=== PATIENT | female | born 2000 | race African-American/Black ===

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

== ENCOUNTER 2022-01-17 15:49 | Emergency (ER) | payer OTHER ==
[2022-01-17] MEDS ORDERED: Lidocaine 1% PF 5 ML VIAL ONE (17:45)
== END 2022-01-17 18:24 | disposition home or self-care (01) ==
LOC: ERS 15:49
DX: L02.412 Cutaneous abscess of left axilla (principal); L03.112 Cellulitis of left axilla; I10 Essential (primary) hypertension
CPT/HCPCS: 10061

== ENCOUNTER 2022-01-19 07:11 | Emergency (ER) | payer OTHER ==
[2022-01-19] MEDS ORDERED: Bacitracin 1 PK ONE (07:43)
== END 2022-01-19 08:20 | disposition home or self-care (01) ==
LOC: ERS 07:11
DX: L02.412 Cutaneous abscess of left axilla (principal); I10 Essential (primary) hypertension; Z79.899 Other long term (current) drug therapy
CPT/HCPCS: 99282

== ENCOUNTER 2022-11-12 22:06 | Emergency (ER) | payer OTHER ==
[2022-11-12] MEDS ORDERED: Proparacaine 0.5% Opth 15 ML BOT ONE (23:21)
[2022-11-12] MEDS ORDERED: Fluorescein Opthalmic Strip ONE (23:21)
== END 2022-11-13 00:42 | disposition home or self-care (01) ==
LOC: ERS 22:06
DX: S05.02XA Injury of conjunctiva and corneal abrasion without foreign body, left eye, initial encounter (principal)
CPT/HCPCS: 99283

== ENCOUNTER 2023-06-28 13:09 | Emergency (ER) | payer OTHER, SELFPAY | END 2023-06-28 13:36 | disposition left against medical advice (07) | LOC: ERS 13:09 | DX: Z53.21 Procedure and treatment not carried out due to patient leaving prior to being seen by health care provider (principal) ==

== ENCOUNTER 2023-10-17 04:10 | Emergency (ER) | payer BC, SELFPAY ==
[2023-10-17 04:47] LABS: #Monocytes 1.1 thou/uL (0.11-0.59); #Neutrophils 6.1 thou/uL (1.40-6.50); %Basophils 0.1 % (0.0-1.0); %Lymphocytes 7.9 % (21.0-51.0); %Neutrophils 77.9 % (42.0-75.0); Hematocrit 40.3 % (36.0-47.0); Hemoglobin 13.7 g/dL (12.0-16.0); Mean Corpuscular Volume 88.4 fl (78.0-98.0); Mean Platelet Volume 10.6 fL (7.4-10.4); Platelet Count 262 10x3/uL (130-400); RBC Distribution Width 12.8 % (11.5-14.5); Red Blood Cell (RBC) Count 4.56 mill/uL (4.20-5.40); White Blood Cell (WBC) Count 7.9 10x3/uL (4.8-10.8)
[2023-10-17 05:09] LABS: Pregnancy Test - Urine (BHCG) Negative (Negative); Pregu Control Background? CLEAR/WHITE (CLR/WHITE); Pregu Control Bar Appear? YES (CONTROL BAR)
[2023-10-17 05:12] LABS: Bacteria/HPF 4+ HPF (None Seen); Bilirubin Negative (Negative); Blood, Urine 2+ (Negative); CAUTI Indications for Culture Pelvic or flank pain; Clarity Extra Turbid (Clear); Glucose, Urine (Dipstick) Normal (Negative); Ketone, Urine Negative (Negative); Leukocyte 500 Leu/uL (Negative); Nitrite Negative (Negative); Protein, Urine (Dipstick) 70 mg/dL (Neg-Trace); RBC/HPF 21-50 HPF (0-3); Squamous Epithelial 0-3 HPF (0-3); Transitional Epithelial 0-3 HPF (None Seen); Urobilinogen Normal mg/dL (Less than 2); WBC/HPF Greater than 50 HPF (0-3); Yeast-Budding 2+ HPF (None Seen); pH, Urine 6.5 (5.0-9.0)
[2023-10-17 05:13] LABS: Urine Culture Reflex Yes Yes
[2023-10-17 05:33] LABS: ALT (SGPT) 7 U/L (8-55); AST (SGOT) 12 U/L (5-34); Albumin 4.2 g/dL (3.5-5.0); Alkaline Phosphatase 51 U/L (40-110); Anion Gap 15 mmol/L (10-20); BUN (Urea Nitrogen) 4 mg/dL (7.0-18.7); Bilirubin, Total 0.6 mg/dL (0.2-1.2); Calc. Creatinine Clearance 0 mL/min (70-130); Calcium 9.5 mg/dL (7.8-10.44); Carbon Dioxide 24 mmol/L (22-29); Chloride 101 mmol/L (98-107); Estimated GFR 90; Globulin 4.4 g/dL (2.4-3.5); Glucose 112 mg/dL (70-105); Lipase 12 U/L (8-78); Potassium 3.6 mmol/L (3.5-5.1); Protein, Total 8.6 g/dL (6.0-8.3); Sodium 136 mmol/L (136-145)
[2023-10-17] MEDS ORDERED: Ketorolac Tromethamine 30 MG (1 mL) VIAL ONE (05:54)
[2023-10-17] MEDS ORDERED: Lidocaine 1% MPF 2 ML VIAL ONE (05:54)
[2023-10-17] MEDS ORDERED: cefTRIAXone (ROCEPHIN) 500 MG VIAL ONE (05:54)
== END 2023-10-17 05:50 | disposition home or self-care (01) ==
LOC: ERS 04:10
DX: N12 Tubulo-interstitial nephritis, not specified as acute or chronic (principal); I10 Essential (primary) hypertension
CPT/HCPCS: 36415; 80053; 81001; 81025; 83690; 85025; 87077; 87086; 87186; 96372; 99284; J0696; J1885

== ENCOUNTER 2024-01-28 20:42 | Emergency (ER) | payer BC ==
[2024-01-28] MEDS ORDERED: Fluorescein Opthalmic Strip ONE (21:45)
[2024-01-28] MEDS ORDERED: Proparacaine 0.5% Opth 15 ML BOT ONE (21:45)
[2024-01-28] MEDS ORDERED: Ibuprofen 800 MG TAB ONE (22:45)
== END 2024-01-28 22:49 | disposition home or self-care (01) ==
LOC: ERS 20:42
DX: S00.212A Abrasion of left eyelid and periocular area, initial encounter (principal); W44.9XXA Unspecified foreign body entering into or through a natural orifice, initial encounter
CPT/HCPCS: 99283